=== PATIENT | male | born 1985 | race African-American/Black ===

== ENCOUNTER 2021-08-10 17:42 | Emergency (ER) | payer OTHER ==
[~2021-08-10] VITALS: Ht 180.3 cm; Wt 91.0 kg
[2021-08-10 17:45] VITALS: BP 158/80
[2021-08-10] MEDS ORDERED: SODIUM CHLORIDE 0.9% 1,000 ML IV ONE (18:45)
[2021-08-10] MEDS ORDERED: NITROGLYCERIN 0.4MG TABLET SL SL PRN (18:45)
[2021-08-10 19:34] LABS: CHLORIDE 103 mEq/L (98-107)
[2021-08-10 19:35] LABS: BASOPHILS % 0.5 % (0.0-2.0); EOSINOPHILS % 0.6 % (0.0-5.0); HEMATOCRIT. 44.8 % (42.0-52.0); HEMOGLOBIN. 15.7 g/dL (14.0-18.0); LYMPHOCYTES % 33.1 % (20.0-50.0); MEAN CORPUSCULAR HEMOGLOBIN 31.1 pg (28.0-32.0); MEAN CORPUSCULAR VOLUME 88.8 fL (80.0-94.0); MEAN PLATELET VOLUME 7.1 fl (7.4-10.4); MONOCYTES % 8.2 % (2.0-8.0); NEUTROPHILS % 57.6 % (40.0-76.0); PLATELET 375 x1000/uL (130-400); RED BLOOD CELL COUNT 5.05 mill/uL (4.7-6.1); RED CELL DISTRIBUTION WIDTH 12.7 % (11.6-14.6)
[2021-08-10 19:39] LABS: PARTIAL THROMBOPLASTIN TIME 24.8 sec (23.4-31.0); PROTHROMBIN TIME 10.7 sec (9.6-11.0)
[2021-08-10 19:41] LABS: ETHANOL BLOOD < 10 mg/dL
[2021-08-10] MEDS ORDERED: ENOXAPARIN 100MG/ML SYR SUBCUT ONE (21:30)
[2021-08-10] MEDS ORDERED: ONDANSETRON HCL 4MG/2ML INJ IV ONE (21:30)
[2021-08-10] MEDS ORDERED: LORAZEPAM 2MG/ML CPJ IV PRN (21:45)
[2021-08-10] MEDS ORDERED: MORPHINE SULFATE 2 MG/ML CPJ (NOT FOR IM USE) IV PRN (21:45)
[2021-08-10] MEDS ORDERED: IPRATROPIUM/ALBUTEROL 0.5-3(2.5)MG/3ML NEB NEB PRN (21:45)
[2021-08-10] MEDS ORDERED: ACETAMINOPHEN 650MG SUPP PR PRN (21:45)
[2021-08-10] MEDS ORDERED: HYDROCODONE/ACETAMINOPHEN 5/325MG TABLET PO PRN (21:45)
[2021-08-10] MEDS ORDERED: ONDANSETRON HCL 4MG/2ML INJ IV PRN (21:45)
[2021-08-10] MEDS ORDERED: MORPHINE SULFATE 4 MG/ML CPJ (NOT FOR IM USE) IV STA (22:13)
[2021-08-10] MEDS ORDERED: ONDANSETRON HCL 4MG/2ML INJ IV STA (22:13)
[2021-08-10] MEDS ORDERED: ENOXAPARIN 40MG/0.4ML SYR SUBCUT SCH (22:15)
[2021-08-11] MEDS ORDERED: ASPIRIN 81MG EC TABLET PO SCH (09:00)
[2021-08-11] MEDS ORDERED: THIAMINE HCL 100MG TABLET PO SCH (09:00)
[2021-08-13] MEDS ORDERED: ASPI-1406 MT (13:08)
[2021-08-13] MEDS ORDERED: DILT120C88 MT (13:08)
== END 2021-08-10 20:30 | disposition left against medical advice (07) ==
LOC: ER 17:42 → CANBEDREQ 23:30
DX: R07.89 Other chest pain (principal); R20.0 Anesthesia of skin; Z82.49 Family history of ischemic heart disease and other diseases of the circulatory system
CPT/HCPCS: 36415; 70450; 71045; 78582; 80053; 80320; 83880; 84484; 85025; 85379; 85610; 85730; 93005; 93970; 99285; A9540; A9558; J7030; G0480